=== PATIENT | female | born 1955 | race Caucasian/White ===

== ENCOUNTER → 2018-10-24 | Outpatient (CLI) | payer MEDICARE, BC ==
[~2018-10-24] MED LIST: ALFA250T3 PO; CALC600T63 PO; CIPR-344 PO; GLUC100026 PO; HYDR-2966 PO; LIOT25TA PO; LORA-802 PO; LOSA25TA57 PO; MONT10TA4 PO; MULT1CAP59 PO; PANT40TA65 PO; VENL37.594 PO; VENL75CA4 PO; VITA200C8 PO; [UNRECOGNIZED DRUG - CODE] PO
--- NOTE | 2018-10-24 12:16 | RADIOLOGY IMAGING REPORT ---
FACILITY: [facility] - [place] PATIENT NAME: Fiorella Styles : 1955 MR: [id number] V: [id number] EXAM DATE: ORDERING PHYSICIAN: VALORIE GARCÍA TECHNOLOGIST: Location: [facility] [place] Patient: Fiorella Styles : 1955 Visit/Account:[id number] Date of Sevice: 10/24/2018 XR THORACIC SPINE 3 V, L-SPINE 2 OR 3 VIEW, RIBS LEFT INDICATION: Back and rib pain COMPARISON: None available FINDINGS: Left RIBS: Cardiomediastinal contours are within normal limits. The lungs are clear. There is no evidence of p neumothorax. Left-sided rib series is negative. Thoracic spine: The vertebral body heights are well maintained. There is no acute osseous or acute alignment abnormality. Mild marginal anterior osteophytes seen throughout the thoracic spine with underlying disc space narr owing. Lumbar spine: There are 5 lumbar type vertebral bodies. There is no acute osseous or acute alignment abnormality. Mild diffuse multilevel degenerative disc space disease is present greatest at L5-S1. The vertebral body heights appear well-maintained. IMPRESSION: 1. No acute osseous or acute alignment abnormality of the thoracic and lumbar spine. 2. Mild degenerative changes as above. 3. Negative chest and left rib series Report Dictated By: Carlos Manriquez at 10/24/2018 11:03 AM Report E-Signed By: Carlos Manriquez at 10/24/2018 12:09 PM WSN:[email or web address]
--- NOTE | 2018-10-24 12:16 | RADIOLOGY IMAGING REPORT ---
FACILITY: [facility] PATIENT NAME: Fiorella Styles : 1955 MR: [id number] V: [id number] EXAM DATE: ORDERING PHYSICIAN: VALORIE GARCÍA TECHNOLOGIST: Location: [facility] Patient: Fiorella Styles : 1955 Visit/Account:[id number] Date of Sevice: 10/24/2018 XR THORACIC SPINE 3 V, L-SPINE 2 OR 3 VIEW, RIBS LEFT INDICATION: Back and rib pain COMPARISON: None available FINDINGS: Left RIBS: Cardiomediastinal contours are within normal limits. The lungs are clear. There is no evidence of p neumothorax. Left-sided rib series is negative. Thoracic spine: The vertebral body heights are well maintained. There is no acute osseous or acute alignment abnormality. Mild marginal anterior osteophytes seen throughout the thoracic spine with underlying disc space narr owing. Lumbar spine: There are 5 lumbar type vertebral bodies. There is no acute osseous or acute alignment abnormality. Mild diffuse multilevel degenerative disc space disease is present greatest at L5-S1. The vertebral body heights appear well-maintained. IMPRESSION: 1. No acute osseous or acute alignment abnormality of the thoracic and lumbar spine. 2. Mild degenerative changes as above. 3. Negative chest and left rib series Report Dictated By: Carlos Manriquez at 10/24/2018 11:03 AM Report E-Signed By: Carlos Manriquez at 10/24/2018 12:09 PM WSN:[email or web address]
--- NOTE | 2018-10-24 12:17 | RADIOLOGY IMAGING REPORT ---
FACILITY: [facility] PATIENT NAME: Fiorella Styles : 1955 MR: [id number] V: [id number] EXAM DATE: ORDERING PHYSICIAN: VALORIE GARCÍA TECHNOLOGIST: Location: [facility] [place] Patient: Fiorella Styles : 1955 Visit/Account:[id number] Date of Sevice: 10/24/2018 XR THORACIC SPINE 3 V, L-SPINE 2 OR 3 VIEW, RIBS LEFT INDICATION: Back and rib pain COMPARISON: None available FINDINGS: Left RIBS: Cardiomediastinal contours are within normal limits. The lungs are clear. There is no evidence of p neumothorax. Left-sided rib series is negative. Thoracic spine: The vertebral body heights are well maintained. There is no acute osseous or acute alignment abnormality. Mild marginal anterior osteophytes seen throughout the thoracic spine with underlying disc space narr owing. Lumbar spine: There are 5 lumbar type vertebral bodies. There is no acute osseous or acute alignment abnormality. Mild diffuse multilevel degenerative disc space disease is present greatest at L5-S1. The vertebral body heights appear well-maintained. IMPRESSION: 1. No acute osseous or acute alignment abnormality of the thoracic and lumbar spine. 2. Mild degenerative changes as above. 3. Negative chest and left rib series Report Dictated By: Carlos Manriquez at 10/24/2018 11:03 AM Report E-Signed By: Carlos Manriquez at 10/24/2018 12:09 PM WSN:[email or web address]
== END ==
LOC: RAD 10:17
PROVIDERS: ATTEND Family Medicine
DX: R07.81 Pleurodynia (principal); M54.6 Pain in thoracic spine; M54.5 Low back pain
CPT/HCPCS: 71100; 72072; 72100